=== PATIENT | female | born 1980 | race Caucasian/White ===

== ENCOUNTER 2017-09-13 14:18 | Outpatient (CLI) | payer SELFPAY ==
[~2017-09-13] VITALS: Ht 180.3 cm; Wt 107.0 kg
[~2017-09-13 14:18] MED LIST: Motrin PO
[2017-09-13 15:00] VITALS: BP 135/81
[2017-09-13] MEDS ORDERED: PRENATAL TABLE1 EAC3 PO (15:30)
== END 2017-09-13 15:43 | disposition home or self-care (01) ==
LOC: LDRP-OP 14:18 → 2WEST 14:22
DX: O36.8130 Decreased fetal movements, third trimester, not applicable or unspecified (principal); Z3A.40 40 weeks gestation of pregnancy
CPT/HCPCS: 59025; G0378